=== PATIENT | female | born 1955 | race African-American/Black ===

== ENCOUNTER 2018-07-09 07:52 | Inpatient (IN) | payer MEDICAID ==
[2018-07-09] VITALS (41 sets, daily range): BP systolic 76–221; BP diastolic 46–145
[~2018-07-09] VITALS: Ht 175.3 cm; Wt 91.6 kg
[~2018-07-09 07:52] MED LIST: CALC-993 PO; CHOL40002 PO; FERR-63 PO; OMEPRAZOLE
[2018-07-09] MEDS ORDERED: THROMBIN (BOVINE) 5000 UNITS/VIAL TOP ONE (08:12)
[2018-07-09] MEDS ORDERED: GELATIN SPONGE,ABSORBABLE 12-7MM SPONGE ONE (08:12)
[2018-07-09] MEDS ORDERED: LIDOCAINE HCL/EPINEPHRINE 1%-EPI 1:100,000 20 ML VIAL ONE (08:12)
[2018-07-09] MEDS ORDERED: NORMAL SALINE 0.9% 10 ML SYR ONE (08:12)
[2018-07-09] MEDS ORDERED: BACITRACIN 50,000 UNITS/VIAL ONE (08:13)
[2018-07-09] MEDS: LACTATED RINGERS 1,000 ML IV SCH ×2 (09:15→15:05)
[2018-07-09] MEDS ORDERED: TRAM50TA3 PO (09:35)
[2018-07-09] MEDS ORDERED: GARL200T PO (09:35)
[2018-07-09] MEDS ORDERED: VITA400C73 PO (09:35)
[2018-07-09] MEDS ORDERED: MULT-1116 PO (09:35)
[2018-07-09] MEDS ORDERED: GLYCOPYRROLATE 0.2 MG/ML 2ML VIAL ONE (10:03)
[2018-07-09] MEDS ORDERED: NEOSTIGMINE METHYLSULFATE 1MG/ML 10 ML VIAL ONE (10:03)
[2018-07-09] MEDS ORDERED: PROPOFOL 200MG/20ML VIAL IV ONE ×2 (10:03→11:39)
[2018-07-09] MEDS ORDERED: MIDAZOLAM HCL 2 MG/2 ML VIAL ONE (10:03)
[2018-07-09] MEDS ORDERED: CEFAZOLIN SODIUM 1000MG/VIAL ONE (10:03)
[2018-07-09] MEDS ORDERED: ROCURONIUM BROMIDE 10MG/ML VIAL 5ML IV ONE ×3 (10:03→12:33)
[2018-07-09] MEDS ORDERED: FENTANYL CITRATE/PF 50MCG/ML 2ML VIAL ONE ×4 (10:03→13:21)
[2018-07-09] MEDS ORDERED: PHENYLEPHRINE HCL 10 MG/ML 1ML (IV VIAL) IV ONE (10:04)
[2018-07-09] MEDS ORDERED: ONDANSETRON HCL 4MG/2ML INJ ONE (10:04)
[2018-07-09] MEDS ORDERED: EPHEDRINE SULFATE 50MG/ML VIAL ONE (10:04)
[2018-07-09] MEDS ORDERED: SODIUM CHLORIDE 0.9% 10ML VIAL ONE (10:04)
[2018-07-09] MEDS ORDERED: SUCCINYLCHOLINE CHLORIDE 200MG/10ML IV ONE (10:04)
[2018-07-09] MEDS ORDERED: DEXAMETHASONE 4MG/ML 1ML VIAL ONE (10:04)
[2018-07-09] MEDS ORDERED: METOCLOPRAMIDE HCL 10MG/2ML VIAL ONE (10:04)
[2018-07-09] MEDS ORDERED: NITROGLYCERIN 50MG PREMIX 250 ML IV ONE (10:14)
[2018-07-09] MEDS ORDERED: PROPOFOL 10MG/ML 100ML 100 ML IV ONE (10:14)
[2018-07-09] MEDS ORDERED: CEFAZOLIN SODIUM 1000MG/VIAL IV SCH (14:00)
[2018-07-09] MEDS ORDERED: ONDANSETRON HCL 4MG/2ML INJ IV PRN (14:00)
[2018-07-09] MEDS ORDERED: NICARDIPINE 40MG/200ML PREMIX 200 ML IV PRN ×2 (14:34→15:00)
[2018-07-09] MEDS ORDERED: LABETALOL 5MG/ML SYR 20 MG/4 ML SYRINGE IV NR (14:35)
[2018-07-09] MEDS: MORPHINE SULFATE 4 MG/ML CPJ (NOT FOR IM USE) IV PRN ×2 (14:55→19:50)
[2018-07-09] MEDS ORDERED: LABETALOL HCL 20MG/4ML CARPUJECT IV NR (15:00)
[2018-07-09] MEDS: DEXAMETHASONE 4MG/ML 1ML VIAL IV SCH ×2 (18:35→23:42)
[2018-07-09] MEDS: DEXT 5%/LACTATED RINGERS 1,000 ML IV SCH (18:41)
[2018-07-09] MEDS: CEFAZOLIN 1000MG PREMIX 50 ML IV SCH (18:41)
[2018-07-09] MEDS ORDERED: INFLUENZA VIRUS VACCINE(AFLURIA) 0.5ML SYR IM ONE (22:00)
[2018-07-10] VITALS (52 sets, daily range): BP systolic 81–172; BP diastolic 37–107
[2018-07-10] MEDS: MORPHINE SULFATE 4 MG/ML CPJ (NOT FOR IM USE) IV PRN ×3 (01:22→20:31)
[2018-07-10] MEDS: CEFAZOLIN 1000MG PREMIX 50 ML IV SCH (01:22)
[2018-07-10] MEDS: DEXT 5%/LACTATED RINGERS 1,000 ML IV SCH (03:15)
[2018-07-10] MEDS: DEXAMETHASONE 4MG/ML 1ML VIAL IV SCH ×3 (06:07→18:27)
[2018-07-10] MEDS: PANTOPRAZOLE SODIUM 40 MG/VIAL IV SCH (12:41)
[2018-07-10] MEDS: ACETAMINOPHEN 325MG TABLET PO PRN ×2 (12:42→18:04)
[2018-07-11] VITALS: BP 135/69
[2018-07-11] MEDS: ACETAMINOPHEN 325MG TABLET PO PRN ×2 (02:07→20:03)
[2018-07-11 04:00] VITALS: BP 139/79
[2018-07-11 06:44] LABS: HEMATOCRIT. 38.7 % (36.0-48.0); HEMOGLOBIN. 13.1 g/dL (12.0-16.0); MEAN CORPUSCULAR HEMOGLOBIN 32.4 pg (28.0-32.0); MEAN CORPUSCULAR VOLUME 95.7 fL (81.0-99.0); PLATELET 208 x1000/uL (130-400); RED BLOOD CELL COUNT 4.04 mill/uL (4.2-5.4); RED CELL DISTRIBUTION WIDTH 12.8 % (11.6-14.6)
[2018-07-11 08:15] LABS: CHLORIDE 104 mEq/L (98-107)
[2018-07-11] MEDS: PANTOPRAZOLE SODIUM 40 MG/VIAL IV SCH (08:29)
[2018-07-11] MEDS: MORPHINE SULFATE 4 MG/ML CPJ (NOT FOR IM USE) IV PRN (09:51)
[2018-07-11 12:00] VITALS: BP 154/64
[2018-07-11 13:41] LABS: PLATELET ESTIMATE NORMAL
[2018-07-11 16:00] VITALS: BP 127/74
[2018-07-11] MEDS ORDERED: BISACODYL 5MG TABLET PO PRN (17:30)
[2018-07-11] MEDS: DOCUSATE SODIUM 100MG CAPSULE PO SCH (18:03)
[2018-07-11 20:00] VITALS: BP 111/55
[2018-07-12] VITALS (7 sets, daily range): BP systolic 104–146; BP diastolic 55–82
[2018-07-12] MEDS: MORPHINE SULFATE 4 MG/ML CPJ (NOT FOR IM USE) IV PRN ×2 (01:01→18:43)
[2018-07-12] MEDS: DOCUSATE SODIUM 100MG CAPSULE PO SCH ×2 (10:02→18:42)
[2018-07-12] MEDS: ACETAMINOPHEN 325MG TABLET PO PRN (10:03)
[2018-07-12 10:59] LABS: BASOPHILS % 0.7 % (0.0-2.0); EOSINOPHILS % 0.4 % (0.0-5.0); HEMATOCRIT. 42.2 % (36.0-48.0); HEMOGLOBIN. 14.1 g/dL (12.0-16.0); MEAN CORPUSCULAR HEMOGLOBIN 32.2 pg (28.0-32.0); MEAN CORPUSCULAR VOLUME 96.3 fL (81.0-99.0); MEAN PLATELET VOLUME 7.5 fl (7.4-10.4); MONOCYTES % 6.5 % (2.0-8.0); NEUTROPHILS % 64.4 % (40.0-76.0); PLATELET 209 x1000/uL (130-400); RED BLOOD CELL COUNT 4.38 mill/uL (4.2-5.4); RED CELL DISTRIBUTION WIDTH 12.7 % (11.6-14.6)
[2018-07-12 11:11] LABS: CHLORIDE 102 mEq/L (98-107)
[2018-07-12] MEDS ORDERED: POTASSIUM CHLORIDE 20MEQ TABLET SR PO NR (12:00)
== END 2018-07-12 23:35 | disposition home health service (06) | DRG 321 ==
LOC: OR 07:52 → MICUSO 07:53 → 6EST 07-10 16:40
PROVIDERS: ADMIT Internal Medicine; ATTEND Internal Medicine
PROC: 0RG20A0 Fusion of 2 or more Cervical Vertebral Joints with Interbody Fusion Device, Anterior Approach, Anterior Column, Open Approach (ICD-10-PCS; principal; 2018-07-10)
PROC: 0RB30ZZ Excision of Cervical Vertebral Disc, Open Approach (ICD-10-PCS; 2018-07-10)
DX: M47.12 Other spondylosis with myelopathy, cervical region (principal); G82.50 Quadriplegia, unspecified; M50.022 Cervical disc disorder at C5-C6 level with myelopathy; M50.023 Cervical disc disorder at C6-C7 level with myelopathy; F32.9 Major depressive disorder, single episode, unspecified; G95.20 Unspecified cord compression; M47.22 Other spondylosis with radiculopathy, cervical region; Z98.891 History of uterine scar from previous surgery; Z90.49 Acquired absence of other specified parts of digestive tract
CPT/HCPCS: 36415; 72040; 80048; 83735; 86850; 86900; 88304; 88311; 90686; 92610; 94667; 95925; 95926; 95928; 97116; 97162; 97166; 97530; 97535; A4216; C1713; C9113; J0330; J0690; J1100; J2250; J2270; J2370; J2405; J2704; J2710; J2765; J3010; J3490; J7030; J7120; J7121; L0172

== ENCOUNTER 2021-04-24 16:59 | Emergency (ER) | payer OTHER, MEDICAID ==
[~2021-04-24] VITALS: Ht 170.2 cm; Wt 89.0 kg
[~2021-04-24 16:59] MED LIST changes: -CALC-993 PO; -CHOL40002 PO; -FERR-63 PO; +GARL200T PO; +MULT-1116 PO; -OMEPRAZOLE; +TRAM50TA3 PO; +VITA400C73 PO
[2021-04-24 17:33] VITALS: BP 124/62
[2021-04-24] MEDS ORDERED: DIPH25CA83 MT (18:06)
== END 2021-04-24 19:18 | disposition home or self-care (01) ==
LOC: ER 16:59
DX: L50.9 Urticaria, unspecified (principal); R73.03 Prediabetes; Z91.013 Allergy to seafood
CPT/HCPCS: 99283